=== PATIENT | male | born 1990 | race Caucasian/White ===

== ENCOUNTER 2017-06-04 13:53 | Emergency (ER) | payer MEDICAID ==
[~2017-06-04] VITALS: Ht 172.7 cm; Wt 90.7 kg
[~2017-06-04 13:53] MED LIST: ACETAMINOPHEN-1 EAC1 PO; BUSPIRONE HCL10 MG PO; BUTALB-APAP-CA1 EACH PO; CLEOCIN HCL300 MG PO; GRALISE1 EACH PO; IBUPROFEN 600600 M1 PO; LATUDA20 MG PO; LITHIUM PO; PROPRANOLOL 1010 MG PO
[2017-06-04 14:24] LABS: ABSOLUTE BASOPHILS 0.1 thou/uL (0.0-0.2); ABSOLUTE EOSINOPHILS 0.2 thou/uL (0.0-0.7); ABSOLUTE LYMPHOCYTES 1.9 thou/uL (0.8-5.3); ABSOLUTE MONOCYTES 0.5 thou/uL (0.0-1.2); EOSINOPHILS 3.5 %; HEMATOCRIT 46.7 % (42.0-52.0); HEMOGLOBIN 15.7 gm/dL (14.0-18.0); LYMPHOCYTES 28.2 %; MCH 31.4 pg (26.0-34.0); MCHC 33.7 g/dL (28.0-37.0); MCV 93.2 fL (80.0-100.0); MONOCYTES 7.7 %; MPV 7.9 fl. (7.2-11.1); NUCLEATED RBCS 0 /100WBC; PLATELET COUNT* 309 thou/uL (150-400); POLYS 59.6 %; RBC 5.01 mil/uL (4.50-6.00); WBC 6.7 thou/uL (4.0-11.0)
[2017-06-04 14:31] LABS: ANION GAP 8 mmol/L (7-16); BUN 24 mg/dL (7-18); CALCIUM 9.1 mg/dL (8.5-10.1); CHLORIDE 105 mmol/L (98-107); CO2 29 mmol/L (21-32); GLUCOSE 98 mg/dL (70-99); POTASSIUM 4.1 mmol/L (3.5-5.1); SODIUM 142 mmol/L (136-145)
[2017-06-04 14:38] LABS: ALBUMIN 3.9 g/dL (3.4-5.0); ALKALINE PHOSPHATASE 84 U/L (46-116); SGOT 22 U/L (15-37); SGPT 37 U/L (30-65); TOTAL BILIRUBIN 0.4 mg/dL (<0.1-1.0); TOTAL PROTEIN 7.2 g/dL (6.4-8.2); TROPONIN-I LEVEL <0.06 ng/mL (<0.06)
[2017-06-04 15:11] LABS: URINE BILIRUBIN NEGATIVE (Negative); URINE BLOOD NEGATIVE (Negative); URINE CLARITY CLEAR; URINE COLOR STRAW; URINE GLUCOSE-RANDOM NEGATIVE (Negative); URINE KETONES TRACE (Negative); URINE LEUKOCYTES-REFLEX NEGATIVE (Negative); URINE NITRITE-REFLEX NEGATIVE (Negative); URINE PROTEIN NEGATIVE (Negative); URINE UROBILINOGEN 0.2 E.U./dl (0.2-1.0)
[2017-06-04 15:28] VITALS: BP 129/80
--- NOTE | 2017-06-05 17:14 | EKG ---
[place] [address] ELECTROCARDIOGRAM REPORT Name: SHANNAN ALMENDAREZ III Room: [facility]#: [id number] Admission: 06/04/17 Attend Phys: Discharge: 06/04/17 Date of : [birth year] Report #: [id number] THIS REPORT FOR: //name// [facility] ED Test Date: 2017-06-04 Test Time: 13:59:10 Pat Name: SHANNAN ALMENDAREZ Department: Room: Gender: M Certified Fraud Examiner: NIA : 1990 Requested By: Skinny Gomez Order Number: [id number] MD: Bill Hassan Measurements Intervals [place] Rate: 65 P: 42 NE: 153 QRS: 50 QRSD: 97 T: 25 QT: 379 QTc: 394 Interpretive Statements Sinus rhythm No previous ECG available for comparison Electronically Signed On 06-05-2017 17:14:34 STUDENT EDUCATION SPECIALIST by Bill Hassan [email or web address] <ELECTRONICALLY SIGNED> By: Bill Hassan MD, [facility] 06/05/17 1714 [id number] Bill Hassan MD, FACC /EPI
== END 2017-06-04 15:29 | disposition home or self-care (01) ==
LOC: M.ERS 13:53
PROVIDERS: Physician Assistant
DX: R07.89 Other chest pain (principal); I10 Essential (primary) hypertension; F31.9 Bipolar disorder, unspecified; Z88.8 Allergy status to other drugs, medicaments and biological substances

== ENCOUNTER → 2017-07-31 | Outpatient (CLI) | payer MEDICAID | LOC: M.RAD 12:56 | DX: M94.0 Chondrocostal junction syndrome [Tietze] (principal); M54.5 Low back pain ==